=== PATIENT | male | born 1965 | race Caucasian/White ===

== ENCOUNTER → 2017-01-28 | Day surgery (SDC) | payer OTHER ==
[2017-01-14 15:31] VITALS: BMI 26.0
--- NOTE | 2017-01-14 15:50 | PAT Medication Instructions ---
Service Date Jan 14, 2017. Current Home Medication List Albuterol Hfa (Ventolin Hfa), 2 PUFFS INH QID PRN for RN Ciclesonide (Alvesco), 1 PUFF INH BID Medication Instructions For Your Scheduled Surgery - Take the following medications the morning of surgery with a sip of water: Albuterol Hfa (Ventolin Hfa), 2 PUFFS INH QID PRN for RN (if needed) Ciclesonide (Alvesco), 1 PUFF INH BID - Take the following medications as scheduled the night before surgery: Albuterol Hfa (Ventolin Hfa), 2 PUFFS INH QID PRN for RN (if needed) Ciclesonide (Alvesco), 1 PUFF INH BID If you have any questions please call us at [phone] or [phone] or [phone]
[~2017-01-28] VITALS: Ht 172.7 cm; Wt 79.5 kg
[~2017-01-28] MED LIST: ACYC-251 PO; ALBUTEROL HFA INHALER 8.5 GM INH ONE; ATROPINE SULFATE 0.1 MG/ML 5ML SYR IV PRN; BACI500O11 TOP; BACITRACIN OINT 15 GM TUBE ONE; BUPIVACAINE 0.5 % 5 MG/1 ML MPF 30ML VIAL ONE; CEFAZOLIN 2000 MG/60 ML D5W 60 ML IV SCH; CETI10TA84 PO; CICL80AE INH; CLR10 PO; DEXAMETHASONE SOD INJ 4 MG/ML VIAL ONE; EpHEDrine SULFATE INJ 50 MG/ML AMP IV PRN; FENTANYL CITRATE INJ 50 MCG/1 ML 2 ML VIAL IV PRN; FENTANYL CITRATE INJ 50 MCG/1 ML 2 ML VIAL ONE; HYDROmorphone INJ 1 MG/ML SYR IV PRN; LACTATED RINGER'S 1000ML 1,000 ML IV SCH; LIDOCAINE HCL 2% 2 ML VIAL (20MG/ML) ONE; MIDAZOLAM HCL 1 MG/ML 2ML VIAL ONE; ONDANSETRON INJ 2 MG/ML 2 ML VIAL IV PRN; ONDANSETRON INJ 2 MG/ML 2 ML VIAL ONE; OXYC-57 PO; OXYCODONE/ACETAMINOPHEN 5-325 TAB PO PRN; PHEN-775 PO; PHENAZOPYRIDINE HCL 200 MG TAB PO PRN; PROPOFOL IV EMULSION 10 MG/ML 20 ML VIAL IV ONE; SULF800T23 PO; VNTHFA/IN INH; [UNRECOGNIZED DRUG - OTHER]
[2017-01-28 12:06] VITALS: BP 136/68; PULSE 67; TEMP 36.7; O2SAT 96; Ht 172.7 cm; Wt 79.5 kg
--- NOTE | 2017-01-28 12:22 | History & Physical Bridge Note ---
H&P Re-Evaluation Bridge Note: I have examined the patient, reviewed the History & Physical and in the interval since the performance of the History & Physical I have noted the following changes of clinical significance: No changes noted
[2017-01-28 12:30] LABS: BUN/CREATININE RATIO 9.2 (10-20); CREATININE 1.6 mg/dl (0.60-1.40); POTASSIUM 4.5 mmol/L (3.5-5.1)
--- NOTE | 2017-01-28 15:29 | Discharge Instructions ---
Discharge Instructions Date of Service Jan 28, 2017. Admission Reason for Admission: Meatal Stenosis, Right Spermatocele Discharge Discharge Diagnosis / Problem: Same s/p meatoplasty, cystoscopy and R spermatocoelectomy Discharge Goals Goal(s): Decrease discomfort, Improve function, Therapeutic intervention Activity Recommendations Activity Limitations: as noted below Lifting Limitations: no more than 25 pounds, gradually increase as tolerated ( after 1 week) Exercise/Sports Limitations: rest today, gradually increase as tolerated (over 1 week) May Resume Sexual Activity: after two weeks Shower/Bathe: tomorrow (OK to shower, no tub bath) Driving or Machine Use: resume 1 day after discharge . Instructions / Follow-Up Instructions / Follow-Up Ice pack and scrotal supports x 2 days postop Discharge Diet Recommended Diet: Regular Diet (good fluid intake) Procedures Procedures Performed: flexible cystoscopy, meatoplasty, right spermatocelectomy Pending Studies Studies pending at discharge: yes List of pending studies: Pathology report Medical Emergencies . Who to Call and When: Medical Emergencies: If at any time you feel your situation is an emergency, please call 911 immediately. . Non-Emergent Contact Non-Emergency issues call your: Urologist Call Non-Emergent contact if: you have a fever, temperature is above 101, your pain is not controlled, your pain is worsening, your pain is unusual for you, your pain is concerning you, wound has increased drainage, wound has increased redness, wound has increased pain, you have any medication questions . . "Provider Documentation" section prepared by Tushar Hunt. . VTE Core Measure Inpt VTE Proph given/why not?: SCD's [place] Drug Monitoring Program Search Results: patient reviewed within database, no issues identified
--- NOTE | 2017-01-28 15:32 | [facility] Post Operative Brief Note ---
Immediate Operative Summary Operative Date Jan 28, 2017. Pre-Operative Diagnosis Meatal Stenosis, right spermatocele Post-Operative Diagnosis Same Procedure(s) Performed Flexible cystoscopy, meatoplasty, right spermatocelectomy Surgeon Dr Yessi Hunt Institutional Aide Surgeon(s) NA Estimated Blood Loss 20ml Findings R spermatocoele removed intact, excellent hemostasis, normal cysto, grade 1-2 trabeculation, small inflammatory polyp at bladder neck not worrisome for CA Specimens A. right spermatocele (permanent) Drains NA Anesthesia GALMA + local cord block Complication(s) None Disposition Recovery Room / PACU
--- NOTE | 2017-01-28 15:33 | [facility] Operative Report ---
Operative Report Operative Date Jan 28, 2017. Pre-Operative Diagnosis Meatal Stenosis, right spermatocele Post-Operative Diagnosis Same Procedure(s) Performed Meatoplasty, flexible cystoscopy, R spermatocoelectomy Surgeon Dr Yessi Hunt Armored Vehicle Officer Surgeon(s) NA Estimated Blood Loss 20 ml Findings Spermatocoele removed intact, normal flexible cystoscopy. Specimens A. right spermatocele (permanent) Drains NA Anesthesia GALMA + local cord block Complication(s) None Disposition Recovery Room / PACU Indications Meatal stenosis, R spermatocoele. Description of Procedure IV Ancef for ABx coverage, SCDs for prophylaxis, consent reviewed, daytime babysitter out followed. GALMA induced, prepped in supine position. Straight clamp placed at meatus at 6 oclock then incised with scissors with no bleeding. When the meatus was sufficiently open, flexible cystoscopy performed - normal urethra, some early BPH with mild intravesical protrusion of prostate. 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 Bladder fully inspected with scope retroflexion - grade 2 trabeculation, no masses or worrisome mucosa, normal UOs. Scope removed and mucosa at meatus everted using interrupted 4.0 chromic at 4, 6 and 8 oclock positions. 16 fr leos placed, removed at end of case for bladder drainage during spermatocoelectomy. Attention then turned to scrotum - after skin plain local midline incision made over raphe. Brought down to testis using bovie, then delivered from scrotum. Tunica vaginalis opened with little fluid, appendix testis removed. Cord block performed. Large plain R spermatocoele noted, dissected free intact using bovie , 3.0 vicryl ties where necessary. A free floating portion of the epididymis was tied and trimmed, sent with specimen. Excellent hemostasis and good viability of testis appreciated after removal of spermatocoele. Generous wound irrigation and meticulous hemostasis with bovie attained. Testis returned to scrotum without twists or turns in cord, normal anatomic position. Wound closed in 2 layers with 3.0 vicryl and 3.0 chromic at the skin. Bacitracin placed over both incisions after removal of leos, scrotal support and fluffs placed. Anesthesia reversed, RR stable. Rx for Bacitracin, Percocet PRN, Pyridium PRN and Bactrim x 3 days BID provided. Scrotal support and ice x 2 days, void prior to DC. I attest to the content of the Intraoperative Record and any orders documented therein. Any exceptions are noted below.
--- NOTE | 2017-01-28 15:39 | Anesthesiology Progress Note ---
Anesthesia Post Op Note Date & Time Jan 28, 2017 at 15:39 Vital Signs Pain Intensity: 0 Vital Signs Past 12 Hours Date Time Temp Pulse Resp B/P (MAP) Pulse Ox O2 Delivery O2 Flow Rate FiO2 01/28/17 15:35 71 12 113/86 98 Mask 10 01/28/17 15:25 65 10 117/75 97 Mask 10 01/28/17 15:19 36.4 69 18 127/75 97 Mask 10 01/28/17 12:06 36.7 67 20 136/68 (90) 96 Room Air Notes Mental Status: alert / awake / arousable, participated in evaluation Pt Amnestic to Procedure: Yes Nausea / Vomiting: adequately controlled Pain: adequately controlled Airway Patency, RR, SpO2: stable & adequate BP & HR: stable & adequate Hydration State: stable & adequate Anesthetic Complications: no major complications apparent
[2017-01-28 16:04] VITALS: BP_SYST 110; BP_SYST 113; BP_DIAS 66; BP_DIAS 70; PULSE 64; PULSE 79; TEMP 36.7; O2SAT 95
[2017-01-28 16:34] VITALS: BP 113/66; PULSE 79; TEMP 36.7; O2SAT 95
[2017-01-28 17:30] VITALS: BP 110/68; PULSE 80; O2SAT 96
== END | disposition home or self-care (01) ==
LOC: C.ACU 11:32
PROVIDERS: ATTEND Urology
DX: N43.40 Spermatocele of epididymis, unspecified (principal); Q64.33 Congenital stricture of urinary meatus; E78.00 Pure hypercholesterolemia, unspecified; Z82.49 Family history of ischemic heart disease and other diseases of the circulatory system; Z83.3 Family history of diabetes mellitus; Z80.43 Family history of malignant neoplasm of testis